=== PATIENT | male | born 1945 | race Caucasian/White ===

== ENCOUNTER → 2016-08-15 | Outpatient (CLI) | payer OTHER ==
--- NOTE | ~2016-08-15 | US5 ---
[facility] A Service of [facility] RADIOLOGY TEXT RESULTS PATIENT: FREDRICK VALADEZ LOCATION: [place] : 47 UNIT #: [id number] AGE: [address]: Abraham Henry MD SEX: M ORDER DR: [id number] [facility] [address] [place], [place] [address] [id number] O MR#: [id number] Acc #: [id number] NAME: FREDRICK VALADEZ : 1945 SEX: M STUDY DATE/TIME: 08/15/2016 10:16 UNIT: CGUS ROOM: STUDY DESCRIPTION: US Abdominal Complete Attending Physician: Abraham Henry Referring Physician: Abraham Henry Ordering Physician: Abraham Henry Primary Care Physician: Abraham Henry MEDICAL IMAGING REPORT This report is preliminary unless electronic signature is present EXAM Abdominal ultrasound INDICATION Atypical chest pain for the past 2 weeks. PROCEDURE Jamison-scale and Doppler imaging of the abdomen. COMPARISON None FINDINGS Visualized portions of the IVC and abdominal aorta are unremarkable. Visualized portions of the pancreas are unremarkable. Liver measures 15.0 cm. Common duct measures 3.0 mm. Right kidney contains a 1.6 cm cyst. It measures 10.3 cm in length. The liver shows increased echotexture compared with the right kidney. No liver mass is seen on submitted images. Left kidney contains a 2.1 cm cyst. The spleen measures 10.8 cm. IMPRESSION 1. Increased liver echotexture suspicious for steatosis. 2. Bilateral renal cysts. Dictated by... Kyle Watkins M.D. THIS IS AN ELECTRONICALLY VERIFIED REPORT Kyle Watkins M.D. at 08/16/2016 7:05 AM Stephanie TD: 08/15/2016 15:14 JOB #: [id number] [facility] A Service of [facility] RADIOLOGY TEXT RESULTS PATIENT: FREDRICK VALADEZ LOCATION: [facility] : 47 UNIT #: [id number] AGE: [address]: Abraham Henry MD SEX: M ORDER DR: MEDICAL IMAGING REPORT COPY
--- NOTE | ~2016-08-15 | CR63 ---
[facility] A Service of [facility] RADIOLOGY TEXT RESULTS PATIENT: FREDRICK VALADEZ LOCATION: [facility] : 47 UNIT #: [id number] AGE: [address]: Abraham Henry MD SEX: M ORDER DR: [id number] [facility] [address] [place], [place] [address] [id number] O MR#: [id number] Acc #: [id number] NAME: FREDRICK VALADEZ : 1945 SEX: M STUDY DATE/TIME: 08/15/2016 10:37 UNIT: [facility] ROOM: STUDY DESCRIPTION: CR Chest 2 View Attending Physician: Abraham Henry Referring Physician: Abraham Henry Ordering Physician: Abraham Henry Primary Care Physician: Abraham Henry MEDICAL IMAGING REPORT This report is preliminary unless electronic signature is present EXAM Chest 2 views dated 08/15/2016 COMPARISON None HISTORY Chest pain for 2 weeks, diabetic. FINDINGS 2 views of the chest were obtained. Lungs are well-aerated. Degenerative changes are noted at multiple levels. The heart is of normal size. IMPRESSION No acute cardiopulmonary disease is seen. Dictated by... Beth Beck M.D. THIS IS AN ELECTRONICALLY VERIFIED REPORT Beth Beck M.D. at 08/16/2016 3:03 PM CPR/serena TD: 08/15/2016 15:10 JOB #: [id number] MEDICAL IMAGING REPORT COPY
== END | disposition home or self-care (01) ==
LOC: CGUS 09:50
DX: R10.30 Lower abdominal pain, unspecified (principal); E11.9 Type 2 diabetes mellitus without complications; R07.9 Chest pain, unspecified; N28.1 Cyst of kidney, acquired
CPT/HCPCS: 71020; 76700

== ENCOUNTER → 2017-01-30 | Outpatient (CLI) | payer OTHER ==
[2017-01-30 09:54] LABS: ALBUMIN SERUM 3.7 g/dL (3.5-5.0); BILIRUBIN,TOTAL 0.9 mg/dL (0.2-2.0); CALCIUM SERUM 8.9 mg/dL (8.4-10.2); GLOM FILT RATE Estimated 75.9 mL/min (>60); POTASSIUM 4.1 mmol/L (3.5-5.1); PROTEIN TOTAL SERUM 6.7 g/dL (6.0-8.3)
== END | disposition home or self-care (01) ==
LOC: CLAB 08:26
PROVIDERS: Internal Medicine
DX: I10 Essential (primary) hypertension (principal); J01.00 Acute maxillary sinusitis, unspecified
CPT/HCPCS: 36415; 80053; 80061; 82043; 83036